=== PATIENT | male | born 1995 | race African-American/Black ===

== ENCOUNTER 2024-01-21 06:23 | Emergency (ER) | payer OTHER ==
[~2024-01-21] VITALS: Ht 185.4 cm; Wt 70.9 kg
[2024-01-21 06:54] LABS: BASO # 0.1 10^3/uL (0.0-0.2); BASO % 0.6 % (0.0-1.0); EOS # 0.1 10^3/uL (0.0-0.5); EOS % 0.8 % (0.0-3.0); HEMATOCRIT 45.8 % (42.0-52.0); HEMOGLOBIN 15.8 g/dl (13.5-17.5); LYMPH # 2.1 10^3/uL (1.5-5.0); LYMPH % 24.8 % (24.0-44.0); MEAN CORPUSCULAR HEMOGLOBIN 31.5 pg (27.0-33.0); MEAN CORPUSCULAR HGB CONC 34.5 g/dl (32.0-36.5); MEAN CORPUSCULAR VOLUME 91.4 fl (80.0-96.0); MONO # 1.2 10^3/uL (0.0-0.8); MONO % 14.6 % (2.0-8.0); NEUTROPHILS # 4.9 10^3/uL (1.5-8.5); PLATELET COUNT, AUTOMATED 350 10^3/uL (150-450); RED BLOOD COUNT 5.01 10^6/uL (4.30-6.10); WHITE BLOOD COUNT 8.3 10^3/uL (4.0-10.0)
[2024-01-21 07:17] LABS: LIPASE 108 U/L (12-53)
[2024-01-21 07:19] LABS: ALKALINE PHOSPHATASE 85 U/L (46-116); ALT/SGPT 101 U/L (7.0-40); AST/SGOT 83 U/L (<34); BILIRUBIN,DIRECT 0.4 MG/DL (<0.4); BILIRUBIN,TOTAL 1.3 MG/DL (0.3-1.2); BLOOD UREA NITROGEN 16 MG/DL (9-23); CALCIUM LEVEL 9.9 MG/DL (8.5-10.1); CARBON DIOXIDE LEVEL 27 MMOL/L (20-31); CHLORIDE LEVEL 100 MMOL/L (98-107); CK-MB VALUE MASS < 1.0 NG/ML (<3.6); CREATININE FOR GFR 0.88 MG/DL (0.70-1.30); GLOMERULAR FILTRATION RATE > 60.0 (>60); GLUCOSE, FASTING 105 MG/DL (60-100); POTASSIUM SERUM 3.7 MMOL/L (3.5-5.1); SODIUM LEVEL 133 MMOL/L (136-145)
[2024-01-21 07:20] LABS: CPK CREATINE PHOSPHOKINASE 170 U/L (46-171); MB/CK RELATIVE INDEX 0.58 (< OR =4)
[2024-01-21] MEDS: amLODIPine 5 MG TAB PO ONE (08:33)
[2024-01-21 10:39] VITALS: BP 145/118
[2024-01-21] MEDS: hydrALAZINE 20MG/ML 1ML VIAL IV ONE (10:39)
[2024-01-21] MEDS ORDERED: NAPR-885 PO (11:53)
[2024-01-21] MEDS ORDERED: HYDR12.55 PO (11:53)
[2024-01-21] MEDS ORDERED: HOME MED LIST COMPLETE! XX SCH (11:55)
[2024-01-21 12:06] VITALS: BP 154/105; O2SAT 100
[2024-01-21] MEDS ORDERED: AMLO10TA PO (12:11)
[2024-01-21 12:20] VITALS: TEMP 98
== END 2024-01-21 12:21 | disposition home or self-care (01) ==
LOC: M ED 06:23
DX: R07.9 Chest pain, unspecified (principal); I10 Essential (primary) hypertension; I45.10 Unspecified right bundle-branch block; F10.10 Alcohol abuse, uncomplicated; Z79.1 Long term (current) use of non-steroidal anti-inflammatories (NSAID); Z79.899 Other long term (current) drug therapy
CPT/HCPCS: 71045; 80048; 80076; 82550; 82553; 83690; 84484; 85025; 85379; 93005; 96374; 99284; J0360

== ENCOUNTER 2024-01-21 20:24 | Inpatient (IN) | payer OTHER ==
[~2024-01-21] VITALS: Ht 180.3 cm; Wt 69.3 kg
[~2024-01-21 20:24] MED LIST: AMLO10TA PO; HYDR12.55 PO; NAPR-885 PO
[2024-01-21 21:51] LABS: BASO % 0.2 % (0.0-1.0); EOS % 0.4 % (0.0-3.0); HEMATOCRIT 45.3 % (42.0-52.0); LYMPH # 1.3 10^3/uL (1.5-5.0); LYMPH % 13.8 % (24.0-44.0); MEAN CORPUSCULAR HEMOGLOBIN 31.7 pg (27.0-33.0); MEAN CORPUSCULAR HGB CONC 35.3 g/dl (32.0-36.5); MEAN CORPUSCULAR VOLUME 89.7 fl (80.0-96.0); MONO # 1.2 10^3/uL (0.0-0.8); NEUTROPHILS # 6.7 10^3/uL (1.5-8.5); NEUTROPHILS % 72.4 % (36.0-66.0); PLATELET COUNT, AUTOMATED 319 10^3/uL (150-450); RED BLOOD COUNT 5.05 10^6/uL (4.30-6.10); WHITE BLOOD COUNT 9.3 10^3/uL (4.0-10.0)
[2024-01-21] MEDS: ONDANSETRON 4MG 2ML VIAL IV ONE (22:01)
[2024-01-21] MEDS: NS 1,000 ML IV ONE (22:02)
[2024-01-21] MEDS: KETOROLAC 30 MG/ML 1ML VIAL IV ONE (22:02)
[2024-01-21 22:25] LABS: LIPASE 289 U/L (12-53)
[2024-01-21 22:28] LABS: ALBUMIN 4.9 G/DL (3.2-5.2); ALKALINE PHOSPHATASE 70 U/L (46-116); ALT/SGPT 76 U/L (7.0-40); AST/SGOT 42 U/L (<34); BILIRUBIN,DIRECT 0.5 MG/DL (<0.4); BILIRUBIN,TOTAL 1.6 MG/DL (0.3-1.2); BLOOD UREA NITROGEN 15 MG/DL (9-23); CARBON DIOXIDE LEVEL 25 MMOL/L (20-31); CHLORIDE LEVEL 100 MMOL/L (98-107); CREATININE FOR GFR 0.82 MG/DL (0.70-1.30); GLOMERULAR FILTRATION RATE > 60.0 (>60); GLUCOSE, FASTING 109 MG/DL (60-100); POTASSIUM SERUM 3.7 MMOL/L (3.5-5.1); SODIUM LEVEL 133 MMOL/L (136-145); TOTAL PROTEIN 8.6 G/DL (5.7-8.2)
[2024-01-21] MEDS ORDERED: ISOVUE-370 76% 100ML VIAL As Ordered ONE (22:31)
[2024-01-22 00:42] LABS: APPEARANCE, URINE CLEAR (CLEAR); BACTERIA, URINE AUTO NEGATIVE (NEGATIVE); BILIRUBIN, URINE AUTO NEGATIVE (NEGATIVE); BLOOD, URINE BLOOD NEGATIVE (NEGATIVE); COLOR, URINE YELLOW (YELLOW); GLUCOSE, URINE (UA) AUTO NEGATIVE (NEGATIVE); KETONE, URINE AUTO 1+ mg/dL (NEGATIVE); LEUKOCYTE ESTERASE, URINE AUTO NEGATIVE (NEGATIVE); MUCUS, URINE SMALL (NEGATIVE); NITRITE, URINE AUTO NEGATIVE (NEGATIVE); PROTEIN, URINE AUTO NEGATIVE (NEGATIVE); RBC, URINE AUTO 1 /HPF (0-3); SPECIFIC GRAVITY URINE AUTO 1.051 (1.002-1.035); SQUAMOUS EPITHELIAL CELL UR AU 0 /HPF (0-6); UROBILINOGEN, URINE AUTO 0.2 mg/dL (0.0-2.0); WBC, URINE AUTO 0 /HPF (0-3)
[2024-01-22] MEDS: NS 1,000 ML IV SCH (01:07)
[2024-01-22] MEDS: MORPHINE 4 MG/ML 1ML VIAL IV PRN ×3 (01:08→20:22)
[2024-01-22] MEDS ORDERED: ONDANSETRON 4MG 2ML VIAL IV PRN (01:50)
[2024-01-22] MEDS ORDERED: ACETAMINOPHEN 325 MG TAB PO PRN (01:50)
[2024-01-22] MEDS ORDERED: MORPHINE 2 MG/ML 1ML VIAL IV PRN (01:50)
[2024-01-22] MEDS ORDERED: MOM 30ML SUSPENSION UDC PO PRN (01:50)
[2024-01-22] MEDS ORDERED: LORazepam 2 MG TAB PO PRN (02:00)
[2024-01-22] MEDS: THIAMINE 100 MG TAB PO SCH (02:17)
[2024-01-22] MEDS: LR 1,000 ML IV SCH (02:18)
[2024-01-22] MEDS: KETOROLAC 30 MG/ML 1ML VIAL IV SCH (03:29)
[2024-01-22 03:56] LABS: INR 1.01; PARTIAL THROMBOPLASTIN TIME 27.1 SECONDS (24.8-34.2)
[2024-01-22] MEDS: HEPARIN SOD (PORCINE) 5000UNITS/ML 1ML VIAL/SYRINGE SC SCH (05:18)
[2024-01-22 08:35] LABS: HEMATOCRIT 42.4 % (42.0-52.0); HEMOGLOBIN 14.7 g/dl (13.5-17.5); MEAN CORPUSCULAR HEMOGLOBIN 32.2 pg (27.0-33.0); MEAN CORPUSCULAR HGB CONC 34.7 g/dl (32.0-36.5); MEAN CORPUSCULAR VOLUME 92.8 fl (80.0-96.0); PLATELET COUNT, AUTOMATED 295 10^3/uL (150-450); RED BLOOD COUNT 4.57 10^6/uL (4.30-6.10); WHITE BLOOD COUNT 9.3 10^3/uL (4.0-10.0)
[2024-01-22] MEDS: MULTIVITAMINS/MINERALS THERAP 1 TAB PO SCH (08:36)
[2024-01-22] MEDS: DOCUSATE SODIUM 100MG CAPSULE PO SCH (08:36)
[2024-01-22] MEDS: FOLIC ACID 1MG TAB PO SCH (08:36)
[2024-01-22] MEDS ORDERED: HOME MED LIST COMPLETE! XX SCH (08:55)
[2024-01-22 09:02] LABS: ALBUMIN 4.2 G/DL (3.2-5.2); ALKALINE PHOSPHATASE 61 U/L (46-116); ALT/SGPT 67 U/L (7.0-40); AST/SGOT 48 U/L (<34); BILIRUBIN,TOTAL 1.4 MG/DL (0.3-1.2); BLOOD UREA NITROGEN 12 MG/DL (9-23); CALCIUM LEVEL 9.6 MG/DL (8.5-10.1); CARBON DIOXIDE LEVEL 26 MMOL/L (20-31); CHLORIDE LEVEL 103 MMOL/L (98-107); CREATININE FOR GFR 0.87 MG/DL (0.70-1.30); GLOMERULAR FILTRATION RATE > 60.0 (>60); GLUCOSE, FASTING 98 MG/DL (60-100); POTASSIUM SERUM 4.3 MMOL/L (3.5-5.1); SODIUM LEVEL 137 MMOL/L (136-145); TOTAL PROTEIN 7.6 G/DL (5.7-8.2)
[2024-01-22] MEDS: amLODIPine 5 MG TAB PO ONE (15:22)
[2024-01-22] MEDS: HYDROMORPHONE HCL 0.5 MG/ 0.5 ML SYRINGE IV PRN (17:36)
[2024-01-23 07:44] LABS: HEMOGLOBIN 13.3 g/dl (13.5-17.5); MEAN CORPUSCULAR VOLUME 91.3 fl (80.0-96.0); PLATELET COUNT, AUTOMATED 256 10^3/uL (150-450); RED BLOOD COUNT 4.16 10^6/uL (4.30-6.10); WHITE BLOOD COUNT 11.6 10^3/uL (4.0-10.0)
[2024-01-23 08:01] VITALS: BP 143/92; TEMP 98; O2SAT 95
[2024-01-23 08:15] LABS: ALBUMIN 3.8 G/DL (3.2-5.2); ALKALINE PHOSPHATASE 55 U/L (46-116); ALT/SGPT 40 U/L (7.0-40); AST/SGOT 18 U/L (<34); BILIRUBIN,TOTAL 1.7 MG/DL (0.3-1.2); BLOOD UREA NITROGEN 11 MG/DL (9-23); CALCIUM LEVEL 9.5 MG/DL (8.5-10.1); CARBON DIOXIDE LEVEL 28 MMOL/L (20-31); CHLORIDE LEVEL 101 MMOL/L (98-107); GLOMERULAR FILTRATION RATE > 60.0 (>60); GLUCOSE, FASTING 82 MG/DL (60-100); POTASSIUM SERUM 3.9 MMOL/L (3.5-5.1); SODIUM LEVEL 134 MMOL/L (136-145)
[2024-01-23] MEDS: amLODIPine 5 MG TAB PO SCH (09:13)
[2024-01-23] MEDS: LR 1,000 ML IV SCH (09:20)
[2024-01-23 11:54] VITALS: BP 132/78; O2SAT 95
[2024-01-23] MEDS ORDERED: ACETAMINOPHEN *IV* 500 MG in IV 1 EA IV PRN (12:00)
[2024-01-23] MEDS: METHYLNALTREXONE BROMIDE 12MG/0.6ML VIAL (RELISTOR) SC ONE (13:40)
[2024-01-23 15:28] VITALS: BP 133/83; TEMP 98.5; O2SAT 100
[2024-01-23 19:17] VITALS: BP 135/80; O2SAT 100
[2024-01-23] MEDS: PERCOCET 5MG/325MG TAB PO PRN (20:19)
[2024-01-23 23:47] VITALS: BP 130/68; TEMP 98.1; O2SAT 98
[2024-01-24 07:33] LABS: BASO % 0.5 % (0.0-1.0); EOS # 0.1 10^3/uL (0.0-0.5); EOS % 1.8 % (0.0-3.0); HEMATOCRIT 35.2 % (42.0-52.0); HEMOGLOBIN 12.1 g/dl (13.5-17.5); LYMPH # 1.4 10^3/uL (1.5-5.0); LYMPH % 22.4 % (24.0-44.0); MEAN CORPUSCULAR HEMOGLOBIN 32.1 pg (27.0-33.0); MEAN CORPUSCULAR HGB CONC 34.4 g/dl (32.0-36.5); MEAN CORPUSCULAR VOLUME 93.4 fl (80.0-96.0); MONO # 0.9 10^3/uL (0.0-0.8); MONO % 14.4 % (2.0-8.0); NEUTROPHILS # 3.8 10^3/uL (1.5-8.5); NEUTROPHILS % 60.6 % (36.0-66.0); PLATELET COUNT, AUTOMATED 249 10^3/uL (150-450); RED BLOOD COUNT 3.77 10^6/uL (4.30-6.10); WHITE BLOOD COUNT 6.2 10^3/uL (4.0-10.0)
[2024-01-24 07:56] LABS: BLOOD UREA NITROGEN 9 MG/DL (9-23); CALCIUM LEVEL 9.3 MG/DL (8.5-10.1); CARBON DIOXIDE LEVEL 33 MMOL/L (20-31); CHLORIDE LEVEL 104 MMOL/L (98-107); CREATININE FOR GFR 0.79 MG/DL (0.70-1.30); GLOMERULAR FILTRATION RATE > 60.0 (>60); GLUCOSE, FASTING 84 MG/DL (60-100); POTASSIUM SERUM 3.7 MMOL/L (3.5-5.1); SODIUM LEVEL 139 MMOL/L (136-145)
[2024-01-24] MEDS ORDERED: HYDR-3713 PO (09:55)
[2024-01-24] MEDS ORDERED: NORV5TAB PO (09:55)
[2024-01-24 10:02] VITALS: BP 146/86
== END 2024-01-24 11:24 | disposition home or self-care (01) | DRG 440 ==
LOC: M ED 20:24 → M ED INP 01-22 01:49 → M PCU 01-22 18:50
PROVIDERS: ADMIT Student in an Organized Health Care Education/Training Program; ATTEND Internal Medicine
DX: K85.20 Alcohol induced acute pancreatitis without necrosis or infection (principal); I10 Essential (primary) hypertension; K80.20 Calculus of gallbladder without cholecystitis without obstruction; K29.80 Duodenitis without bleeding; K70.9 Alcoholic liver disease, unspecified; Z79.899 Other long term (current) drug therapy